=== PATIENT | male | born 1945 | race Caucasian/White ===

== ENCOUNTER 2016-11-20 13:48 | Emergency (ER) | payer OTHER ==
--- NOTE | 2016-11-20 13:57 | CPEKG ---
Heart Rate: 65 RR Interval: 923 P-R Interval: 204 QRSD Interval: 102 QT Interval: 428 QTC Interval: 445 P [place]: 50 QRS [place]: 8 T Wave [place]: 67 EKG Severity - NORMAL ECG - EKG Impression: SINUS RHYTHM Electronically Signed By: Lul Schmidt 21-Nov-2016 08:13:24
[2016-11-20] MEDS ORDERED: MECLIZINE HCL 25 MG TAB PO ONE ×2 (14:06→14:07)
--- NOTE | 2016-11-20 14:08 | EDPHY ---
H & P Time Seen by Provider: 11/20/16 13:52 HPI/ROS: CHIEF COMPLAINT: Dizzy HISTORY OF PRESENT ILLNESS: The patient is a 71-year-old male with a history of atrial fibrillation on Xarelto who presents emergency department with dizziness. The patient was at work at [employer]. He began to feel dizzy and off balance. It is worse with movement. He denies any headache or weakness. No recent falls or injury. No focal weakness or numbness. He denies chest pain or shortness of breath. No nausea or vomiting. Patient is not normally have episodes of vertigo. REVIEW OF SYSTEMS: My complete review of systems is negative except as mentioned in the HPI. Past Medical/Surgical History: Includes atrial fibrillation, diabetes Social history: Patient does not smoke Smoking Status: Never smoked Physical Exam: Vitals noted GENERAL: Well-appearing, in no acute distress, alert. HEENT: Eyes normal to inspection, normal pharynx, no signs of dehydration. TMs negative bilaterally. NECK: No thyromegaly, no lymphadenopathy, supple. RESPIRATORY: Clear to auscultation bilaterally, no rales, rhonchi or wheezing. CVS: Regular rate and rhythm, no rubs, murmurs, or gallops. ABDOMEN: Soft, nontender, nondistended, no organomegaly. BACK: Normal to inspection, no CVA tenderness. SKIN: Normal color, no rash, warm, dry. No pallor. EXTREMITIES: No pedal edema, no calf tenderness, no Homans sign or cords, no joint swelling. NEURO/PSYCH: Higher functions: Alert and Oriented x3. Normal speech and cognition. Normal mood and affect. Cranial nerves: Normal as tested. Cerebellar: Normal as tested. Good finger to nose, good [id number], normal gait. Peripheral exam: Normal motor exam. Normal sensation. Normal reflexes. Constitutional: Initial Vital Signs Heart Rate 63 11/20/16 13:48 Respiratory Rate 18 11/20/16 13:48 Blood Pressure 142/76 H 11/20/16 13:48 O2 Sat (%) 99 11/20/16 13:48 O2 Delivery Mode Room Air Allergies/Adverse Reactions: No Known Allergies Allergy (Unverified 11/20/16 13:56) Home Medications: Medication Instructions Recorded Meclizine HCl [Meclizine HCl 25 mg 25 mg PO TID #11 tab 11/20/16 (RX,OTC)] Metformin 1000 mg 11/20/16 Metoprolol Succinate 11/20/16 Simvastatin 11/20/16 Xarelto 11/20/16 Medical Decision Making - Diagnostics EKG Interpretation: EKG shows normal sinus rhythm, normal rate, normal axis, normal intervals. There are no ST or T-wave abnormalities. EKG is normal as interpreted by me. Imaging Results: Imaging Impressions Head CT 11/20/16 14:02 Impression: Negative. No acute intracranial hemorrhage or acute process. Findings discussed with Emergency Department physician, Josi Helm M.D. , on November 20, 2016 at 1510. Brain MRI 11/20/16 15:24 Impression: Mild deep hemispheric white matter change, which is nonspecific and can be seen with small vessel ischemic disease. No evidence for acute infarct. Mild generalized cerebral atrophy. Results called and discussed with Dr. Josi Helm on November 20, 2016 at 1559 hours. ED Course/Re-evaluation: In the emergency department I met EMS on arrival. I discussed case with the recreation center director. The patient had a sugar 187. I discussed plan with the patient and answered all his questions. The patient had laboratory studies, EKG and head CT ordered. The patient was given meclizine 25 mg orally. Patient mildly elevated white count. His of the CBC results were normal. Chemistries unremarkable. INR is 1.34. Head CT: Please refer the dictated report by the radiologist. No acute disease noted. I rechecked the patient. He was feeling much better. He was able to ambulate to the bathroom. Nonfocal neuro exam. Because the patient still has mild dizziness and MRI was ordered. The MRI: No acute disease noted. Please refer the dictated report by Dr. Christian George. I discussed the result with the patient. I answered all her questions. No focal deficits on exam. He is given a prescription of meclizine. He will follow up with both Neurology and his primary care physician. He is given contact information. He will return with worsening symptoms. He is given warnings prior to leaving. Differential Diagnosis: My differential includes but is not limited to ischemic CVA, hemorrhagic CVA, dissection, aneurysm, mass, malignancy, labyrinthitis, Meniere's disease, peripheral vertigo - Data Points Laboratory Results: Laboratory Results 11/20/16 14:00 10/04/17 14:00 11/20/16 11/20/16 11/20/16 14:00 14:00 14:00 WBC 9.67 10^3/uL H 10^3/uL (3.80-9.50) RBC 4.72 10^6/uL 10^6/uL (4.40-6.38) Hgb 14.7 g/dL g/dL (13.7-17.5) Hct 42.5 % % (40.0-51.0) MCV 90.0 fL fL (81.5-99.8) MCH 31.1 pg pg (27.9-34.1) MCHC 34.6 g/dL g/dL (32.4-36.7) RDW 12.4 % % (11.5-15.2) Plt Count 198 10^3/uL 10^3/uL (150-400) MPV 10.0 fL fL (8.7-11.7) Neut % (Auto) 68.8 % % (39.3-74.2) Lymph % (Auto) 22.5 % % (15.0-45.0) [place] % (Auto) 6.9 % % (4.5-13.0) Eos % (Auto) 1.3 % % (0.6-7.6) Baso % (Auto) 0.2 % L % (0.3-1.7) Nucleat RBC Rel Count 0.0 % % (0.0-0.2) Absolute Neuts (auto) 6.64 10^3/uL H 10^3/uL (1.70-6.50) Absolute Lymphs (auto) 2.18 10^3/uL 10^3/uL (1.00-3.00) Absolute Monos (auto) 0.67 10^3/uL 10^3/uL (0.30-0.80) Absolute Eos (auto) 0.13 10^3/uL 10^3/uL (0.03-0.40) Absolute Basos (auto) 0.02 10^3/uL 10^3/uL (0.02-0.10) Absolute Nucleated RBC 0.00 10^3/uL 10^3/uL (0-0.01) Immature Gran % 0.3 % % (0.0-1.1) Immature Gran # 0.03 10^3/uL 10^3/uL (0.00-0.10) PT 16.6 SEC H SEC (12.0-15.0) INR 1.34 H (0.83-1.16) APTT 29.2 SEC SEC (23.0-38.0) Sodium 138 mEq/L mEq/L (134-144) Potassium 3.7 mEq/L mEq/L (3.5-5.2) Chloride 102 mEq/L mEq/L (97-110) Carbon Dioxide 23 mEq/l mEq/l (22-31) Anion Gap 13 mEq/L mEq/L (8-16) BUN 15 mg/dL mg/dL (7-23) Creatinine 0.8 mg/dL mg/dL (0.7-1.3) Estimated GFR > 60 Glucose 208 mg/dL H mg/dL (70-100) Calcium 9.5 mg/dL mg/dL (8.5-10.4) Troponin I < 0.012 ng/mL ng/mL (0.000-0.034) Medications Given: Meclizine HCl (Meclizine Hcl) 25 mg PO EDNOW ONE Last Admin: 11/20/16 14:10 Dose: 25 mg Discontinued Medications Meclizine HCl (Meclizine Hcl) 25 mg PO EDNOW ONE Last Admin: 11/20/16 14:10 Dose: Not Given Departure - Departure Disposition: Home, Routine, Self-Care Clinical Impression: Dizziness Condition: Fair Instructions: Dizziness (ED) Additional Instructions: Return with increasing dizziness, headache, weakness, numbness or any other concerns. Your head CT and MRI were unremarkable for acute disease. Referrals: Domo Page MD [Medical Doctor] - 5-7 days, call for appt. Joe Aceves DO [Medical Doctor] - 2-3 days without fail Prescriptions: Meclizine HCl [Meclizine HCl 25 mg (RX,OTC)] 25 mg PO TID #11 tab
[2016-11-20 14:10] LABS: % IMMATURE GRANULYOCYTES 0.3 % (0.0-1.1); ABSOLUTE IMMATURE GRANULOCYTES 0.03 10^3/uL (0.00-0.10); ADD DIFF? NO; ADD MORPH? NO; ADD SCAN? NO; ATYPICAL LYMPHOCYTE FLAG 0 (0-99); FRAGMENT RBC FLAG 0 (0-99); HEMATOCRIT 42.5 % (40.0-51.0); HEMOGLOBIN 14.7 g/dL (13.7-17.5); LEFT SHIFT FLG 0 (0-99); LIPEMIA HEMOLYSIS FLAG 90 (0-99); MEAN CELL HEMOGLOBIN 31.1 pg (27.9-34.1); MEAN CELL HEMOGLOBIN CONCENTR. 34.6 g/dL (32.4-36.7); PLATELET CLUMPS FLAG 0 (0-99); PLATELET COUNT 198 10^3/uL (150-400); RED BLOOD CELL COUNT 4.72 10^6/uL (4.40-6.38); RED CELL DISTRIBUTION WIDTH 12.4 % (11.5-15.2)
[2016-11-20 14:19] LABS: APTT 29.2 SEC (23.0-38.0); INR 1.34 (0.83-1.16); PROTIME(PATIENT) 16.6 SEC (12.0-15.0)
[2016-11-20 14:32] LABS: ANION GAP 13 mEq/L (8-16); CALCIUM 9.5 mg/dL (8.5-10.4); CARBON DIOXIDE 23 mEq/l (22-31); CHLORIDE 102 mEq/L (97-110); CREATININE 0.8 mg/dL (0.7-1.3); GLOMERULAR FILTRATION RATE > 60; GLUCOSE 208 mg/dL (70-100); POTASSIUM 3.7 mEq/L (3.5-5.2); SODIUM 138 mEq/L (134-144)
[2016-11-20 14:39] LABS: TROPONIN I < 0.012 ng/mL (0.000-0.034)
[2016-11-20 16:32] VITALS: BP 121/63; PULSE 65; RESP 16; TEMP 98.1; O2SAT 93
== END 2016-11-20 16:30 | disposition home or self-care (01) ==
DX: R42 Dizziness and giddiness (principal); E11.9 Type 2 diabetes mellitus without complications; Z79.01 Long term (current) use of anticoagulants; Z79.84 Long term (current) use of oral hypoglycemic drugs